=== PATIENT | female | born 1940 | race Caucasian/White ===

== ENCOUNTER 2021-11-22 12:40 | Emergency (ER) | payer MEDICARE, OTHER ==
[~2021-11-22 12:40] MED LIST: BENADRYL25 MG PO; CETIRIZINE HCL5 MG PO; CYCLOBENZAPRINE10 MG PO; CYCLOBENZAPRINE5 MG PO; GABAPENTIN300 MG PO; GABAPENTIN600 MG PO; HYZAAR 100-251 EACH PO; IBUPROFEN800 MG PO; MOBIC7.5 MG PO; OMEPRAZOLE20 MG PO; TRAMADOL HCL100 MG PO; ULTRAM50 MG PO; VITAMIN D21250 MCG PO; ZITHROMAX250 MG PO; [UNRECOGNIZED DRUG - REMARK]
[2021-11-22 15:11] LABS: HEMOGLOBIN 15.4 gm/dl (12.3-15.3); RED BLOOD COUNT 4.9 M/UL (4.00-5.10); WHITE BLOOD COUNT 14.2 K/UL (4.5-11.0)
[2021-11-22] MEDS ORDERED: AMOXICILLIN500 MG PO (16:18)
[2021-11-22] MEDS ORDERED: ZITHROMAX250 MG PO (16:18)
== END 2021-11-22 16:40 | disposition home or self-care (01) ==
LOC: ER1 12:40
PROVIDERS: Emergency Medicine
DX: J18.9 Pneumonia, unspecified organism (principal); I10 Essential (primary) hypertension; Z90.89 Acquired absence of other organs; Z20.822 Contact with and (suspected) exposure to COVID-19
CPT/HCPCS: 0240U; 71046; 80053; 85025; 99285